=== PATIENT | female | born 1955 | race Two or more races ===

== ENCOUNTER 2020-10-21 10:47 | Emergency (ER) | payer OTHER ==
[~2020-10-21] VITALS: Ht 154.9 cm; Wt 70.3 kg
[2020-10-21] MEDS ORDERED: LOSARTAN POTASS50 MG (11:16)
[2020-10-21] MEDS ORDERED: ENDOMETRIN100 MG (11:16)
== END 2020-10-21 16:45 | disposition home or self-care (01) ==
LOC: ER 10:47
DX: R10.84 Generalized abdominal pain (principal)

== ENCOUNTER 2021-06-30 09:26 | Outpatient (CLI) | payer OTHER ==
[~2021-06-30 09:26] MED LIST: ENDOMETRIN100 MG; LOSARTAN POTASS50 MG
== END 2021-06-30 09:30 | disposition home or self-care (01) ==
LOC: MAMO-SONO 09:26
PROVIDERS: ATTEND Internal Medicine Cardiovascular Disease
DX: N64.59 Other signs and symptoms in breast (principal); Z12.31 Encounter for screening mammogram for malignant neoplasm of breast